=== PATIENT | female | born 1970 | race Caucasian/White ===

== ENCOUNTER 2018-03-08 13:52 | Emergency (ER) | payer SELFPAY ==
[~2018-03-08] VITALS: Ht 152.4 cm; Wt 58.5 kg
[~2018-03-08 13:52] MED LIST: IBUP-2213 PO; ROB PO
[2018-03-08 14:20] VITALS: BP 119/95
--- NOTE | 2018-03-08 14:26 | NUR ---
PT AMBULATES BACK TO THE LOBBY
--- NOTE | 2018-03-08 16:50 | NUR ---
PT. AMBULATED TO BED #11 STEADY GAIT.
--- NOTE | 2018-03-08 17:00 | NUR ---
PT. ARRIVED TO THE ED DUE TO LEFT LOWER BACK PAIN X 1 WEEK S/P FALL. PT. STATES " I WAS STANDING ON A BUCKET AND THE LID WAS LOOSE AND `I FELL, AND MY BACK HAS BEEN HURTING AND NOW IT HURTS ALL THE WAY UP TO MY RIBS". 7/10 THROBBING PAIN IN LEFT LOWER BACK THAT RADIATES TO L RIB AREA. PT. DENIES ANY N/V/D. DENIES ANY FEVER OR CHILLS. DENIES ANY LOC UPON FALL. WILL CONTINUE TO MONITOR. SAFETY PRECAUTIONS IMPLEMENTED.
[2018-03-08] MEDS ORDERED: KETOROLAC 60 MG/2 ML VIAL IM ONE (17:30)
[2018-03-08 18:11] VITALS: BP 120/76
--- NOTE | 2018-03-08 18:11 | NUR ---
Patient discharged with v/s stable. Written and verbal after care instructions given and explained. Patient alert, oriented and verbalized understanding of instructions. Ambulatory with steady gait. All questions addressed prior to discharge. ID band removed. Patient advised to follow up with PMD. Rx of MOTRIN 800MG, NORCO 5-325 given. Patient educated on indication of medication including possible reaction and side effects. Opportunity to ask questions provided and answered.
== END 2018-03-08 18:11 | disposition home or self-care (01) ==
LOC: MED 13:52
DX: S20.212A Contusion of left front wall of thorax, initial encounter (principal); Z79.1 Long term (current) use of non-steroidal anti-inflammatories (NSAID); Z79.899 Other long term (current) drug therapy; X58.XXXA Exposure to other specified factors, initial encounter; Y93.89 Activity, other specified; Y92.89 Other specified places as the place of occurrence of the external cause; Y99.8 Other external cause status
CPT/HCPCS: 71101; 96372; 99283; J1885

== ENCOUNTER 2021-12-06 20:14 | Emergency (ER) | payer OTHER ==
[~2021-12-06] VITALS: Ht 152.4 cm; Wt 63.0 kg
[2021-12-06 21:05] VITALS: BP 119/89
--- NOTE | 2021-12-06 22:20 | NUR ---
STRIPPER AND PRINTER CALLED FOR PT, NO ANSWER
--- NOTE | 2021-12-06 22:20 | NUR ---
PATIENT LEFT WITHOUT BEING SEEN BY DR. MELGOZA. NO FURTHER CARE PROVIDED FOR PATIENT.
--- NOTE | 2021-12-06 22:49 | NUR ---
CONTAINER FINISHER CALLED FOR PT, NO ANSWER
--- NOTE | 2021-12-06 22:59 | NUR ---
CALLED FOR THE HIRD TIME , NO RESPONSE
== END 2021-12-06 22:20 | disposition left against medical advice (07) ==
LOC: MED 20:14
DX: R05.9 Cough, unspecified (principal); R51.9 Headache, unspecified; R09.81 Nasal congestion; Z53.21 Procedure and treatment not carried out due to patient leaving prior to being seen by health care provider

== ENCOUNTER 2022-01-26 18:26 | Emergency (ER) | payer OTHER ==
[~2022-01-26] VITALS: Ht 152.4 cm; Wt 65.3 kg
[2022-01-26 18:59] VITALS: BP 157/111
--- NOTE | 2022-01-26 20:32 | NUR ---
pt called in lobby and outside with no answer.
--- NOTE | 2022-01-26 20:53 | NUR ---
PT TAKEN TO BED 8
--- NOTE | 2022-01-26 21:00 | NUR ---
[id number] IN BED 8 WITH C/O RIGHT BIG TOE PAIN AND SWELLING, PER PT SHE HAD A PEDICURE 3 DAYS AGO AND THEY TOOK OUT AN INGROWN TOE NAIL [facility]: WINDY
--- NOTE | 2022-01-26 22:22 | NUR ---
Dr. Chapa examining patient.
[2022-01-26] MEDS ORDERED: NAPR-54 PO (22:25)
[2022-01-26] MEDS ORDERED: CEPH-588 PO (22:25)
--- NOTE | 2022-01-26 22:30 | NUR ---
PT D/C BY DR. HERNANDEZ. ALL INSTRUCTONS PROVIDED BY DR. HERNANDEZ. RX OF KELILLIANA AND LEI GIVEN
--- NOTE | 2022-01-26 22:50 | NUR ---
Iris almeida in EDM - 01/27/22 at 0241 by JOSEPH RECEIVED IN BED 8 WITH C/O RIGHT BIG TOE PAIN AND SWELLING, PER PT SHE HAD A PEDICURE 3 DAYS AGO AND THEY TOOK OUT AN INGROWN TOE NAIL [facility]: WINDY
== END 2022-01-26 22:30 | disposition home or self-care (01) ==
LOC: MED 18:26
DX: L03.031 Cellulitis of right toe (principal)
CPT/HCPCS: 99283

== ENCOUNTER 2022-02-20 23:15 | Emergency (ER) | payer OTHER ==
[~2022-02-20] VITALS: Ht 152.4 cm; Wt 65.8 kg
[~2022-02-20 23:15] MED LIST changes: +CEPH-588 PO; +NAPR-54 PO
[2022-02-20 23:35] VITALS: BP 150/90
--- NOTE | 2022-02-20 23:38 | NUR ---
TO LOBBY A/W BED AMBULATORY
[2022-02-20 23:45] VITALS: BP 150/90
--- NOTE | 2022-02-20 23:52 | NUR ---
SEEN AND EXAMINED BY JACOB
[2022-02-21] MEDS ORDERED: EMLAC TP (00:02)
[2022-02-21] MEDS ORDERED: IBUP-2213 PO (00:02)
[2022-02-21] MEDS ORDERED: SULF-59 PO (00:02)
--- NOTE | 2022-02-21 00:10 | NUR ---
SEEN, ASSESSED, AND DISCHARGED BY ERMD. Written and verbal after care instructions given and explained. Patient alert, oriented and verbalized understanding of instructions BY ERMD. Ambulatory with steady gait. All questions addressed prior to discharge BY ERMD. ID band removed. Patient advised to follow up with PMD. Rx of LIDOCAINE, IBUPROFEN, AND BACTRIM given BY ERMD
== END 2022-02-21 00:09 | disposition home or self-care (01) ==
LOC: MED 23:15
DX: L60.0 Ingrowing nail (principal)
CPT/HCPCS: 99283

== ENCOUNTER 2022-03-02 20:04 | Emergency (ER) | payer OTHER ==
[~2022-03-02] VITALS: Ht 152.4 cm; Wt 63.5 kg
[~2022-03-02 20:04] MED LIST changes: +EMLAC TP; +SULF-59 PO
[2022-03-02 20:15] VITALS: BP 130/90
--- NOTE | 2022-03-02 20:18 | NUR ---
TO LOBBY A/W BED AMBULATORY
[2022-03-02] MEDS ORDERED: HYDROcodone/APAP 5/325 MG 1 TAB TAB PO ONE (22:25)
[2022-03-02] MEDS ORDERED: LIDOCAINE 1% 500 MG/ 50 ML VIAL INJ ONE (22:25)
--- NOTE | 2022-03-02 22:45 | NUR ---
PT TO 6
[2022-03-02] MEDS ORDERED: LIDOCAINE MPF 1% 10 ML ONE (22:48)
--- NOTE | 2022-03-02 23:30 | NUR ---
AT BEDSIDE FOR PROCEDURE
--- NOTE | 2022-03-02 23:40 | NUR ---
PT WALKED IN C/O RIGHT GREAT TOE PAIN/ INGROWN NAIL X 2 MONTHS AFTER GETTING A PEDICURE. PT STATES SHE HAS BEEN UNABLE TO WEAR CLOSE TOED SHOES. +SWELLING, +REDNESS
[2022-03-03] MEDS ORDERED: CLIN300C2 PO (00:25)
[2022-03-03] MEDS ORDERED: HYDR-5080 PO (00:25)
[2022-03-03 00:55] VITALS: BP 122/84
--- NOTE | 2022-03-03 00:55 | NUR ---
Patient discharged with v/s stable. Written and verbal after care instructions given and explained. Patient alert, oriented and verbalized understanding of instructions. Ambulatory with steady gait. All questions addressed prior to discharge. ID band removed. Patient advised to follow up with PMD. Rx of cleocin and norco given. Patient educated on indication of medication including possible reaction and side effects. Opportunity to ask questions provided and answered.
== END 2022-03-03 00:55 | disposition home or self-care (01) ==
LOC: MED 20:04
DX: L60.0 Ingrowing nail (principal)
CPT/HCPCS: 11730; 99284; J2001

== ENCOUNTER 2022-08-22 23:56 | Emergency (ER) | payer OTHER ==
[~2022-08-22] VITALS: Ht 152.4 cm; Wt 63.5 kg
[~2022-08-22 23:56] MED LIST changes: +CLIN300C2 PO; +HYDR-5080 PO
[2022-08-23 00:02] VITALS: BP 167/90
--- NOTE | 2022-08-23 00:05 | NUR ---
TO LOBBY A/W BED AMBULATORY
--- NOTE | 2022-08-23 00:05 | NUR ---
52-year-old female presents secondary to 3 months of intermittent high blood pressure, headaches, malaise. Patient stated that she was recently diagnosed with hypertension 1 week ago and started on a medication whose name she does not remember to take once daily. States she has been under a lot of stress and recently lost her job 3 months ago.
--- NOTE | 2022-08-23 01:23 | NUR ---
pt ambulated to bed 09
[2022-08-23] MEDS ORDERED: amLODIPine 5 MG TAB PO ONE (02:30)
[2022-08-23] MEDS ORDERED: ACETAMINOPHEN EXTRA STRENGTH 500 MG TAB PO ONE (02:30)
[2022-08-23] MEDS ORDERED: KETOROLAC 30 MG/ML VIAL IM ONE (02:30)
[2022-08-23] MEDS ORDERED: ONDANSETRON 4 MG ODT PO ONE (02:30)
[2022-08-23 02:44] LABS: BASOPHILS % (AUTO) 0.7 % (0.0-2.0); EOSINOPHILS # (AUTO) 0.3 K/uL (0-0.4); EOSINOPHILS % (AUTO) 5.6 % (0.0-4.0); HEMATOCRIT 40.6 % (36-48); HEMOGLOBIN 13.9 g/dL (12.0-16.0); LYMPHOCYTES # (AUTO) 2.4 K/uL (2.5-16.5); LYMPHOCYTES % (AUTO) 39.2 % (20.5-51.1); MEAN CORPUSCULAR HEMOGLOBIN 31 pg (27-31); MEAN CORPUSCULAR HGB CONC 34 g/dL (33-37); MEAN CORPUSCULAR VOLUME 91.2 fL (80-94); MONOCYTES # (AUTO) 0.5 K/uL (0.8-1.0); MONOCYTES % (AUTO) 8.4 % (1.7-9.3); NEUTROPHILS # (AUTO) 2.8 K/uL (1.8-7.7); NEUTROPHILS % (AUTO) 46.1 % (42.2-75.2); PLATELET COUNT (AUTO) 232 K/uL (140-450); RED BLOOD CELL COUNT(AUTO) 4.45 MIL/uL (4.20-5.40); RED CELL DISTRIBUTION WIDTH 14.1 % (11.6-13.7)
[2022-08-23 03:08] LABS: ANION GAP 10.6 (8-16); ASPARTATE AMINOTRANSFERASE 34 U/L (15-37); CARBON DIOXIDE 29.1 mmol/L (21-32); CHLORIDE 103 mmol/L (98-107); CREATININE 0.8 mg/dL (0.6-1.3); GFR ARICAN-AMERICAN 97 mL/min (>90); GLUCOSE 114 mg/dL (74-106); POTASSIUM 3.7 mmol/L (3.5-5.1); SODIUM SERUM 139 mmol/L (136-145); TOTAL BILIRUBIN 0.3 mg/dL (0.0-1.0); UREA NITROGEN, BLOOD 17 mg/dL (7-18)
[2022-08-23 03:50] VITALS: BP 151/94
--- NOTE | 2022-08-23 03:50 | NUR ---
Patient discharged with v/s stable. Written and verbal after care instructions given and explained. Patient verbalized understanding. Ambulatory with steady gait. All questions addressed prior to discharge. Advised to follow up with PMD. pt left [facility] [place]
== END 2022-08-23 03:50 | disposition home or self-care (01) ==
LOC: MED 23:56
DX: R51.9 Headache, unspecified (principal); I16.0 Hypertensive urgency; R53.81 Other malaise; R11.0 Nausea; I10 Essential (primary) hypertension; Z79.899 Other long term (current) drug therapy
CPT/HCPCS: 36415; 80053; 84443; 84484; 85025; 96372; 99284; J1885; Q0162

== ENCOUNTER 2022-11-11 23:03 | Emergency (ER) | payer OTHER ==
[~2022-11-11] VITALS: Ht 152.4 cm; Wt 64.9 kg
[2022-11-11 23:10] VITALS: BP 131/89; PULSE 73; RESP 17; TEMP 97.8; O2SAT 97
[2022-11-12] MEDS ORDERED: LORazepam 1 MG TAB PO ONE (01:05)
[2022-11-12 01:24] LABS: BASOPHILS # (AUTO) 0.1 K/uL (0.00-0.22); BASOPHILS % (AUTO) 1.4 % (0.0-2.0); EOSINOPHILS # (AUTO) 0.2 K/uL (0-0.4); EOSINOPHILS % (AUTO) 3.7 % (0.0-4.0); HEMATOCRIT 37.7 % (36-48); LYMPHOCYTES # (AUTO) 2.4 K/uL (2.5-16.5); LYMPHOCYTES % (AUTO) 39.8 % (20.5-51.1); MEAN CORPUSCULAR HEMOGLOBIN 32 pg (27-31); MEAN CORPUSCULAR HGB CONC 35 g/dL (33-37); MEAN CORPUSCULAR VOLUME 92.1 fL (80-94); MONOCYTES # (AUTO) 0.3 K/uL (0.8-1.0); MONOCYTES % (AUTO) 5.7 % (1.7-9.3); NEUTROPHILS % (AUTO) 49.4 % (42.2-75.2); PLATELET COUNT (AUTO) 245 K/uL (140-450); RED CELL DISTRIBUTION WIDTH 13.7 % (11.6-13.7)
[2022-11-12 01:37] LABS: ALANINE AMINOTRANSFERASE 87 U/L (12-78); ALBUMIN 4.1 g/dL (3.4-5.0); ALKALINE PHOSPHATASE 78 U/L (50-136); ANION GAP 13.5 (8-16); ASPARTATE AMINOTRANSFERASE 46 U/L (15-37); CALCIUM 8.5 mg/dL (8.5-10.1); CHLORIDE 104 mmol/L (98-107); CREATININE 0.8 mg/dL (0.6-1.3); GFR ARICAN-AMERICAN 97 mL/min (>90); GFR NON ARICAN-AMERICAN 80 mL/min (>90); GLUCOSE 95 mg/dL (74-106); POTASSIUM 3.5 mmol/L (3.5-5.1); SODIUM SERUM 139 mmol/L (136-145); TOTAL BILIRUBIN 0.3 mg/dL (0.0-1.0); TOTAL PROTEIN, SERUM 7.7 g/dL (6.4-8.2); UREA NITROGEN, BLOOD 17 mg/dL (7-18)
[2022-11-12 02:50] LABS: APPEARANCE,URINE CLEAR (CLEAR); BILIRUBIN,URINE NEGATIVE (NEGATIVE); BLOOD, URINE TRACE-I (NEGATIVE); COLOR,URINE YELLOW (YELLOW); LEUKOCYTE ESTERASE ,URINE NEGATIVE (NEGATIVE); NITRITE, URINE NEGATIVE (NEGATIVE); PROTEIN,URINE NEGATIVE (NEGATIVE); UGLUCOSE NEGATIVE (NEGATIVE); UROBILINOGEN,URINE 0.2 EU/dL (0.2 - 1)
[2022-11-12 03:02] LABS: AMPHETAMINE, URINE NEGATIVE ng/ml (NEG <=1000); BARBITURATE, URINE NEGATIVE ng/ml (NEG <=200); BENZODIAZEPINE, URINE NEGATIVE ng/mL (NEG <=200); CANNABINOID, URINE NEGATIVE ng/mL (NEG <=50); COCAINE, URINE NEGATIVE ng/mL (NEG <=300); OPIATE, URINE NEGATIVE ng/mL (NEG <=2000); PHENCYCLIDINE SCREEN,URINE NEGATIVE ng/mL (NEG <=25)
[2022-11-12 03:04] LABS: BACTERIA,URINE 1+ /HPF (None Seen); RBC,URINE NONE SEEN /HPF (0-5); SQUAMOUS EPITHELIAL CELL,UR 0-3 (FEW) /LPF (0-3 (FEW)); WBC,URINE NONE SEEN /HPF (0-5)
[2022-11-12] MEDS ORDERED: ACET-10509 PO (03:23)
[2022-11-12] MEDS ORDERED: CYCL-711 PO (03:23)
[2022-11-12] MEDS ORDERED: NITR100C7 PO (03:23)
== END 2022-11-12 04:08 | disposition home or self-care (01) ==
LOC: MED 23:03
DX: R51.9 Headache, unspecified (principal); N39.0 Urinary tract infection, site not specified; I10 Essential (primary) hypertension; Z79.899 Other long term (current) drug therapy
CPT/HCPCS: 36415; 70450; 71045; 80053; 80305; 81001; 84484; 85025; 93005; 99285